=== PATIENT | female | born 2000 | race American Indian/Alaskan Native ===

== ENCOUNTER 2025-07-04 19:33 | Emergency (ER) | payer MEDICAID, SELFPAY | END 2025-07-04 21:22 | disposition home or self-care (01) | LOC: CSHERS 19:33 | DX: S60.812A Abrasion of left wrist, initial encounter (principal); G93.0 Cerebral cysts; V43.52XA Car driver injured in collision with other type car in traffic accident, initial encounter | CPT/HCPCS: 70450; 71046; 72125 ==